=== PATIENT | male | born 1955 | race Caucasian/White ===

== ENCOUNTER 2024-05-21 18:50 | Emergency (ER) | payer MEDICARE, MEDICAID, SELFPAY ==
[2024-05-21] VITALS (8 sets, daily range): BP systolic 115–208; BP diastolic 80–117; PULSE 63–81; RESP 16; TEMP 37.7; O2SAT 93–96; BMI 30.8
[2024-05-21 21:34] LABS: Basophils # 0.1 10^3/uL (0.0-0.1); Basophils % 0.8 %; Eosinophils # 0.5 10^3/uL (0.0-0.8); Eosinophils % 4.3 %; Hematocrit 41.8 % (37-53); Lymphocytes # 4.1 10^3/uL (0.8-4.8); Lymphocytes % 39.4 %; Mean Corpuscular Hemoglobin 30.3 pg (27-33); Mean Corpuscular Volume 89.1 fl (82-101); Mean Platelet Volume 9.7 fL (7.4-10.4); Monocytes # 0.7 10^3/uL (0.2-0.9); Monocytes % 6.4 %; Neutrophils # 5.06 10^3/uL (1.8-7.7); Neutrophils % 48.8 %; Nucleated Red Blood Cells % 0 %; Platelet Count 274 10^3/cmm (157-399); Red Blood Count 4.69 10^6/uL (3.85-5.65); Red Cell Distribution Width 13.2 % (12.1-15.1); White Blood Count 10.36 10^3/uL (3.29-11.43)
[2024-05-21] MEDS: ibuprofen 800 mg tablet PO (21:53)
--- NOTE | 2024-05-21 21:56 | XRR_ITS ---
PROCEDURE INFORMATION: Exam: XR Bilateral Mandible Exam date and time: 05/21/2024 10:03 PM Age: 68 years old Clinical indication: Other: Swelling; Additional info: Nontraumatic pain and swelling TECHNIQUE: Imaging protocol: XR of the bilateral mandible. Views: 4 or more views COMPARISON: No relevant prior studies available. FINDINGS: Paranasal sinuses: Well aerated. Bones/joints: No fracture. Soft tissues: Unremarkable. XR/XR mandible <4V [id number] IMPRESSION: Unremarkable.
[2024-05-21 21:57] LABS: Alanine Aminotransferase 28 U/L (0-41); Albumin Level 4.3 g/dL (3.5-5.2); Alkaline Phosphatase 90 U/L (40-130); Anion Gap 14.5 (5-19); Aspartate Amino Transferase 20 U/L (0-40); Blood Urea Nitrogen 7 mg/dL (8-23); Carbon Dioxide 27 mmol/L (22-29); Chloride 99 mmol/L (98-107); Creatinine Clr Calc Pharmacy 114.4688; Globulin 4.1 g/dL (1.3-4.6); Glomerular Filtration Rate 133.6 mL/min (90-130); Glucose 93 mg/dL (65-115); Osmolality Calculated 282 mOsm/kg (285-295); Potassium 3.5 mmol/L (3.5-5.1); Sodium 137 mmol/L (136-145); Total Bilirubin 0.3 mg/dL (0.15-1.2); Total Protein 8.4 g/dL (6.6-8.7)
--- NOTE | 2024-05-21 21:57 | ED_ITS ---
HPI - General Adult 2 General: Chief complaint: General Medical Stated complaint: BP High\Non Verbal, Jaw Swelling Time Seen by Provider: 05/21/24 21:49 History of Present Illness: Patient is nonverbal, caretakers at bedside and provides the history. She says he has had elevated blood pressure since he has not been feeling well. Several days ago approximately 4 days ago she took him to his PCP for some swelling redness and pain in his right drawl region. They gave him a shot of antibiotics and put him on cefprozil for 10 days. This area has improved however during this time his blood pressure has gone up. Caregiver says sometimes runs in the 150s, however here it is running in the 180s and 190s although up to about 205 systolic. Patient does not appear in any distress peers nontoxic. Caregiver did say PCP said to come get an x-ray if it was not significantly resolving. Related Data Allergies Allergy/AdvReac Type Severity Reaction Status Date / Time No Known Allergies Allergy Verified 05/21/24 19:06 Review of Systems 2 General: Reports: 10 or more systems reviewed and unremarkable except in HPI and below Physical Exam 2 Const: COMMON NORMALS: no acute distress, average body habitus, no limitations, healthy appearing, alert and well nourished HENMT: COMMON NORMALS: normocephalic, atraumatic, hearing grossly normal bilaterally, external ears normal, EAC's normal, moist oral mucous membranes and oropharynx normal HEAD & SCALP: normocephalic and atraumatic EXTERNAL EAR: Yes external ears normal EXTERNAL AUDITORY CANAL: EAC's normal Eye: COMMON NORMALS: Equal, round and reactive pupils present, EOMs intact bilaterally, conjunctivae normal and no scleral icterus CONJUNCTIVA: Yes conjunctivae normal PUPIL: Yes Equal, round and reactive pupils present Neck/C-Spine: COMMON NORMALS: full ROM, no lymphadenopathy, supple, no meningeal signs, no JVD and Thyroid normal THYROID: Thyroid normal Chest: COMMONS NORMALS: normal inspection of the chest and normal palpation of entire chest wall Resp: COMMON NORMALS: normal respiratory effort, No retractions, No use of accessory muscles and clear to auscultation bilaterally AUSCULTATION: clear to auscultation bilaterally Cardio: COMMON NORMALS: no JVD, regular rate, regular rhythm, S1 normal heart sound present, S2 normal heart sound present, No gallops present (Cardio), No clicks present (Cardio), No murmurs present (Cardio) and No rub (Cardio) R ATE: regular rate RHYTHM: regular rhythm HEART SOUNDS: S1 normal heart sound present and S2 normal heart sound present GI: COMMON NORMALS: Normal to inspection, nondistended, normoactive bowel sounds present, Soft to palpation, non-tender, No hepatosplenomegaly present and no masses PALPATION: Yes Soft to palpation and Yes No hepatosplenomegaly present Neuro: SENSORIUM/ORIENTATION: Yes alert MENINGEAL SIGNS: Yes no meningeal signs Course 2 Vital Signs: Vital signs: Vital Signs Temperature 99.9 F H 05/21/24 18:57 Pulse Rate 63 05/22/24 00:30 Respiratory Rate 16 05/21/24 18:57 Blood Pressure 106/73 05/22/24 00:30 Pulse Oximetry 92 05/22/24 00:30 Oxygen Delivery Me thod Room Air 05/21/24 22:00 MDM - General Adult Medical Decision Making Patient lab work and the mandible x-ray all which essentially unremarkable. Patient given 0.1 clonidine which brought his blood pressure down to 106/73. Patient be discharged home. Medical Records I reviewed the patient's medical records. Lab Data I reviewed the patient's lab results. 05/21/24 21:21 05/21/24 21:21 Radiology Impressions Mandible X-Ray 05/21/24 21:56 IMPRESSION: Unremarkable. Laboratory Results WBC 10.36 10^3/uL (3.29-11.43) 05/21/24 21:21 RBC 4.69 10^6/uL (3.85-5.65) 05/21/24 21:21 Hgb 14.20 g/dL (11.27-16.99) 05/21/24 21:21 Hct 41.8 % (37-53) 05/21/24 21:21 MCV 89.1 fl (82-101) 05/21/24 21:21 MCH 30.3 pg (27-33) 05/21/24 21:21 MCHC 34.0 g/dL (30-55) 05/21/24 21:21 RDW 13.2 % (12.1-15.1) 05/21/24 21:21 Plt Count 274 10^3/cmm (157-399) 05/21/24 21:21 MPV 9.7 fL (7.4-10.4) 05/21/24 21:21 Neut % (Auto) 48.8 % 05/21/24 21:21 Lymph % (Auto) 39.4 % 05/21/24 21:21 [place] % (Auto) 6.4 % 05/21/24 21:21 Eos % (Auto) 4.3 % 05/21/24 21:21 Baso % (Auto) 0.8 % 05/21/24 21:21 Neut # (Auto) 5.06 10^3/uL (1.8-7.7) 05/21/24 21:21 Lymph # (Auto) 4.1 10^3/uL (0.8-4.8) 05/21/24 21:21 [place] # (Auto) 0.7 10^3/uL (0.2-0.9) 05/21/24 21:21 Eos # (Auto) 0.5 10^3/uL (0.0-0.8) 05/21/24 21:21 Baso # (Auto) 0.1 10^3/uL (0.0-0.1) 05/21/24 21:21 Nucleated RBC % (auto) 0 % 05/21/24 21: Nucleated RBCs # 0.0 /100WBC 05/21/24 21:21 Sodium 137 mmol/L (136-145) 05/21/24 21:21 Potassium 3.5 mmol/L (3.5-5.1) 05/21/24 21:21 Chloride 99 mmol/L (98-107) 05/21/24 21:21 Carbon Dioxide 27 mmol/L (22-29) 05/21/24 21:21 Anion Gap 14.5 (5-19) 05/21/24 21:21 BUN 7 mg/dL (8-23) L 05/21/24 21:21 Creatinine 0.6 mg/dL (0.7-1.2) L 05/21/24 21:21 GFR Calculation 133.6 mL/min (90-130) H 05/21/24 21:21 Glucose 93 mg/dL (65-115) 05/21/24 21:21 Calculated Osmolality 282 mOsm/kg (285-295) L 05/21/24 21:21 Calcium 9.0 mg/dL (8.5-10.5) 05/21/24 21:21 Total Bilirubin 0.3 mg/dL (0.15-1.2) 05/21/24 21:21 AST 20 U/L (0-40) 05/21/24 21:21 ALT 28 U/L (0-41) 05/21/24 21:21 Alkaline Phosphatase 90 U/L (40-130) 05/21/24 21:21 Total Protein 8.4 g/dL (6.6-8.7) 05/21/24 21:21 Albumin 4.3 g/dL (3.5-5.2) 05/21/24 21:21 Globulin 4.1 g/dL (1.3-4.6) 05/21/24 21:21 All radiology interpretation(s) finalized by discharge Discharge Plan Discharge Patient Disposition: Home Clinical Impression: Hypertension Qualifiers: Hypertension type: unspecified Qualified Code(s): I10 - Essential (primary) hypertension Condition: Stable Discharge Orders: Discharge ED (Routine); Ordered 05/22/24 Ordered By: Kenneth Aguirre Patient Instructions: Hypertension Activity Restrictions/Additional Instructions: Thank you for choosing [facility] for your healthcare needs today. Please realize that you were seen in the emergency department and that we are providing you with an emergency medical screening exam and this may not be a complete and all exclusive of all testing and/or medical workup we may need to determine your element or severity of your illness. It is very important that you follow-up as instructed with your primary care provider or specialist for the additional evaluation and to discuss your medical treatment plan. You may return to the emergency department should you have concerns or if your condition changes or worsens in any way. Print Language: Maldivian Coding Level of Care Code ED Conservation Specialist for Gerald Flynn
[2024-05-21] MEDS: cloNIDine 0.1 mg Tablet PO (22:18)
[2024-05-22] VITALS: BP 110/76; PULSE 65; O2SAT 94
[2024-05-22 00:30] VITALS: BP 106/73; PULSE 63; O2SAT 92
[2024-05-22 01:05] VITALS: BP 106/73; PULSE 72; O2SAT 94
== END 2024-05-22 01:06 | disposition home or self-care (01) ==
PROVIDERS: Emergency Medicine; Emergency Provider Emergency Medicine
DX: I10 Essential (primary) hypertension (principal)
CPT/HCPCS: 36415; 70100; 80053; 85025; 99284; J9999